=== PATIENT | female | born 1970 | race Hispanic/Latino ===

== ENCOUNTER 2024-06-21 14:53 | Emergency (ER) | payer OTHER ==
[~2024-06-21] VITALS: Ht 167.6 cm; Wt 66.2 kg
[2024-06-21] MEDS ORDERED: NAPR-1505 PO (16:09)
[2024-06-21 16:22] VITALS: BP 117/57; PULSE 71; RESP 14; TEMP 97; O2SAT 97
== END 2024-06-21 16:24 | disposition home or self-care (01) ==
LOC: EDH 14:53
DX: S60.221A Contusion of right hand, initial encounter (principal); S93.402A Sprain of unspecified ligament of left ankle, initial encounter; E11.9 Type 2 diabetes mellitus without complications; W18.39XA Other fall on same level, initial encounter; Y93.89 Activity, other specified; Y92.89 Other specified places as the place of occurrence of the external cause; Y99.8 Other external cause status
CPT/HCPCS: 73130; 73600